=== PATIENT | male | born 1970 | race American Indian/Alaskan Native ===

== ENCOUNTER 2018-07-01 11:23 | Emergency (ER) | payer OTHER ==
[2018-07-01 11:23] VITALS: BMI 32.3
[2018-07-01 11:31] VITALS: BP 126/69; RESP 18; TEMP 97.9; O2SAT 98
--- NOTE | 2018-07-01 12:22 | ED PDOC ---
HPI: Chest Pain Time Seen by Provider: 07/01/18 11:27 Chief Complaint (Nursing): Chest Pain Chief Complaint (Provider): chest pain History Per: Patient History/Exam Limitations: no limitations Onset/Duration Of Symptoms: Sudden Onset Current Symptoms Are (Timing): Intermittent Episodes Severity: Moderate Quality: Sharp Associated Symptoms: Dyspnea. denies: Nausea Modifying Factors: None Exacerbating Factors: Exertion Additional Complaint(s): 48yo male arrived from cardiac stress lab where he developed chest pain immediately after exertional stress test, Dr Reyes glass technician in lab reviewed EKG said no changes but recommended he be worked up in ED. Given nitro in lab which resolved pain. Admits to exertional chest pain for several months. Active smoker and has hx HIV, states compliance w HAART and CD4 ok. Past Medical History Reviewed: Historical Data, Nursing Documentation, Vital Signs Vital Signs: Last Vital Signs Temp 97.9 F 07/01/18 11:30 Pulse 64 07/01/18 11:30 Resp 18 07/01/18 11:30 BP 126/69 07/01/18 11:30 Pulse Ox 98 07/01/18 11:30 - Medical History PMH: Depression, HIV, Seizures, Sexually Transmitted Disease Denies: HTN, Chronic Kidney Disease - Surgical History Other surgeries: brain surgery - Family History Family History: States: Unknown Family Hx - Social History Current smoker - smoking cessation education provided: Yes - Immunization History Hx Tetanus Toxoid Vaccination: No Hx Influenza Vaccination: No Hx Pneumococcal Vaccination: No - Home Medications Home Medications: Ambulatory Orders Medication Instructions Recorded Emtricitabine/Tenofovir Diso 1 tab PO DAILY 07/01/18 [Truvada 200 MG-300 MG] Multivitamin [Multi-Vitamin Daily] 1 tab PO DAILY 07/01/18 Raltegravir Potassium [Isentress] 400 mg PO Q12 07/01/18 levETIRAcetam [Keppra] 1,000 mg PO Q12 07/01/18 - Allergies Allergies/Adverse Reactions: Allergies Allergy/AdvReac Type Severity Reaction Status Date / Time No Known Allergies Allergy Verified 03/12/18 12:02 Review of Systems ROS Statement: Except As Marked, All Systems Reviewed And Found Negative Constitutional: Negative for: Fever Cardiovascular: Positive for: Chest Pain, Palpitations Respiratory: Negative for: Cough, Shortness of Breath Gastrointestinal: Negative for: Nausea, Abdominal Pain Genitourinary Male: Negative for: Dysuria, Incontinence Musculoskeletal: Negative for: Neck Pain Skin: Negative for: Rash, Lesions Neurological: Negative for: Weakness, Numbness Psych: Negative for: Depression Physical Exam - Reviewed Nursing Documentation Reviewed: Yes Vital Signs Reviewed: Yes - Physical Exam Appears: Positive for: Well, Non-toxic, No Acute Distress Head Exam: Positive for: ATRAUMATIC, NORMAL INSPECTION, NORMOCEPHALIC Skin: Positive for: Normal Color, Warm, DRY Eye Exam: Positive for: EOMI, Normal appearance, PERRL ENT: Positive for: Normal ENT Inspection Neck: Positive for: Normal, Painless ROM Cardiovascular/Chest: Positive for: Regular Rate, Rhythm Respiratory: Positive for: CNT, Normal Breath Sounds Pulses-Radial (L): 2+ Pulses-Radial (R): 2+ Gastrointestinal/Abdominal: Positive for: Soft. Negative for: Tenderness, Guarding Back: Positive for: Normal Inspection Extremity: Positive for: Normal ROM Neurologic/Psych: Positive for: Alert, Oriented. Negative for: Motor/Sensory Deficits - Laboratory Results Result Diagrams: 07/01/18 13:00 07/01/18 13:00 - ECG ECG: Positive for: Interpreted By Me ECG Rhythm: Positive for: Sinus Bradycardia, Nonspecific Changes Rate: 57 O2 Sat by Pulse Oximetry: 98 Pulse Ox Interpretation: Normal Medical Decision Making Medical Decision Making: ASA ordered labs CXR and repeat EKG ordered. Dr reyes reviewed stress EKG states only achieved 60% HR hence nondiagnostic stress test. Admit Dr Rainey covering Dr Monroe PMD in house after hospitalist came to eval patient he stated he wanted to leave hospital. explained risks of leaving including heart attack, stroke, or disability. he was aware to return at any time for completion of treatment. smoking cessation also discussed. See PMD for continued workup. Disposition - Clinical Impression Clinical Impression: Chest pain - Patient ED Disposition Is Patient to be Admitted: Yes - Disposition Disposition: Against Medical Advice Disposition Time: 13:30 Condition: FAIR Forms: [employer] (German) - Pt Status Changed To: Hospital Disposition Of: Observation
[2018-07-01 12:25] VITALS: PULSE 57
[2018-07-01 13:28] LABS: PROTHROMBIN TIME 10.6 Seconds (9.8-13.1)
[2018-07-01 13:31] LABS: PARTIAL THROMBOPLASTIN TIME 32.2 Seconds (25.6-37.1)
[2018-07-01 13:47] LABS: ALB/GLOB RATIO 1.3 (1.0-2.1); ALBUMIN 3.8 g/dL (3.5-5.0); ALT/SGPT 64 U/L (21-72); AST/SGOT 57 U/L (17-59); BLOOD UREA NITROGEN 10 mg/dl (9-20); CALCIUM 9.3 mg/dL (8.4-10.2); GFR NON-AFRICAN AMERICAN > 60
[2018-07-01 13:51] LABS: BASO # 0.1 K/uL (0.0-0.2); BASO % 0.6 % (0.0-2.0); EOS # 0.3 K/uL (0.0-0.7); EOS % 3.1 % (0.0-4.0); HEMOGLOBIN 15.4 g/dL (12.0-18.0); LYMPH % 31.4 % (20.0-40.0); MEAN CELL VOLUME 90.2 fl (80.0-94.0); MEAN CORPUSCULAR HEMOGLOBIN 29.8 pg (27.0-31.0); MEAN CORPUSCULAR HGB CONC 33.1 g/dL (33.0-37.0); MEAN PLATELET VOLUME 10.2 fl (7.2-11.7); MONO # 0.7 K/uL (0.0-0.8); MONO % 7.8 % (0.0-10.0); NEUT # 5.5 K/uL (1.8-7.0); NEUT % 57.1 % (50.0-75.0); NRBC % 0.2 % (0.0-0.0); RBC 5.18 Mil/uL (4.40-5.90); RED CELL DISTRIBUTION WIDTH 15.9 % (11.5-14.5); WHITE BLOOD COUNT 9.6 K/uL (4.8-10.8)
[2018-07-01 13:57] LABS: B-TYPE NATRIURETIC PEPTIDE 38.7 pg/ml (0-450)
--- NOTE | 2018-07-01 13:58 | RAD ---
Date of service: 07/01/2018 HISTORY: Chest pain. COMPARISON: No prior. TECHNIQUE: Chest PA and lateral FINDINGS: LUNGS: No active pulmonary disease. PLEURA: No significant pleural effusion identified. No pneumothorax apparent. CARDIOVASCULAR: Normal. OSSEOUS STRUCTURES: No significant abnormalities. VISUALIZED UPPER ABDOMEN: Normal. OTHER FINDINGS: None. IMPRESSION: No active disease.
--- NOTE | 2018-07-02 07:02 | CARD ---
APPROVED REPORT Date of service: 07/01/2018 EKG Measurement Heart [id number] <Conclusion> Sinus bradycardia Otherwise normal ECG
== END 2018-07-01 14:20 | disposition home or self-care (01) ==
LOC: H.ER 11:23
DX: R07.9 Chest pain, unspecified (principal); F17.200 Nicotine dependence, unspecified, uncomplicated; Z86.59 Personal history of other mental and behavioral disorders; Z79.899 Other long term (current) drug therapy